=== PATIENT | male | born 1955 | race Caucasian/White ===

== ENCOUNTER → 2016-11-19 | Outpatient (CLI) | payer MEDICARE ==
--- NOTE | 2016-11-21 12:58 | EKG REPORT ---
SEVERITY:- OTHERWISE NORMAL ECG - SINUS RHYTHM MINIMAL ST DEPRESSION, INFERIOR LEADS : Confirmed by: Deepa Nails 21-Nov-2016 12:57:52
== END ==
LOC: OD 12:31
PROVIDERS: ATTEND Physician Assistant
DX: Z79.891 Long term (current) use of opiate analgesic (principal)
CPT/HCPCS: 93005; 36415; 93010; G0480; 80358

== ENCOUNTER 2017-06-16 00:43 | Outpatient (CLI) | payer MEDICARE, OTHER | END 2017-06-16 15:30 | disposition E | LOC: OROUT 00:43 | DX: Z52.9 Donor of unspecified organ or tissue (principal) ==